=== PATIENT | female | born 1935 | race Caucasian/White ===

== ENCOUNTER 2018-01-27 07:05 | Day surgery (SDC) | payer MEDICARE ==
[~2018-01-27 07:05] MED LIST: Prevnar 13-Val Conj/PF 0.5 ML SYRINGE IM ONE
[2018-01-27 08:20] VITALS: BP 138/66; TEMP 98.2
--- NOTE | 2018-01-27 09:31 | RAD ---
CERVICAL SPINE 3 VIEWS: Date: 01/27/18 Lateral views obtained in the neutral, flexion, and extension positions. HISTORY: Cervical radiculopathy. FINDINGS: Prior anterior fusion procedure with anterior plate and screws transfixing C4, C5, and C6. Posterior alignment is maintained normal. Vertebral bodies maintain height. Degenerative spurring is seen anter iorly from the cervical vertebra. Facet hypertrophy is noted. Slight anterolisthesis of C7 on T1 does not appear to change with flexion or extension. IMPRESSION: Postoperative and degenerative changes of cervical spine noted. Slight anterolisthesis of C7-T1 does not appear to significantly change with flexion or extension. POS: [facility]
--- NOTE | 2018-01-27 10:22 | RAD ---
CERVICAL MYELOGRAM: HISTORY: Cervical radiculopathy. COMPARISON: None. EXPOSURE: 3.9 minutes, 4065.7 mGy*^m2. FINDINGS: Technically successful cervical myelogram. A total of 9 cc of Isovue-M 300 contrast was administered intrathecally. The patient tolerated the procedure well. No immediate or post procedure complicati ons. TECHNIQUE: Two views lumbar spine corn popper radiograph demonstrate 5 lumbar-type vertebral bodies. There is vacuum disk phenomenon at L4-L5 and L5-S1. There are bilateral pars defects at L5 with anterolisthesis of L 5 upon S1 (7 mm). Consent was obtained to perform a lumbar puncture for intrathecal contrast adminis tration. The patient's back was evaluated. Initially, the L3-L4 level was deemed appropriate. The skin was prepped and draped in sterile fashion. 1% Lidocaine, buffered with sodium bicarbonate, was used for local anesthesia. Due to extensive bony hypertrophy, access to the CSF space was not possib le. Therefore, the L4-L5 level was attempted, which was also unsuccessfully. Finally, the L5-S1 lev el was attempted, which was successful. There was flow of clear CSF into the hub of the needle. Via a short tubing catheter, a total of 9 cc of Isovue-300m contrast was administered intrathecally. Th e patient tolerated the procedure well. No immediate or post procedure complications. IMPRESSION: Technically successful lumbar puncture for intrathecal contrast administration. Please refer to post myelogram CT for further details. POS: [facility]
--- NOTE | 2018-01-27 12:14 | CT ---
POST MYELOGRAM CERVICAL SPINE CT: Date: 01/27/18 HISTORY: Cervical radiculopathy. COMPARISON: None. TECHNIQUE: Post myelogram cervical spine CT is performed in the axial plane. Reformatted images are submitted fo r interpretation. FINDINGS: There is an anterior fusion plate with transvertebral screw at C4, C5, and C6. No perihardware lucenc y. Prosthesis at C4-C5 and C5-C6 disc spaces. No prevertebral soft tissue swelling. There appear to b e degenerative changes and erosive changes involving the atlantoaxial articulation. Correlate for art hritis. Visualized soft tissue neck structures are unremarkable. Upper mediastinum and lung apices are also u nremarkable for an acute process. There is no craniocervical dissociation. Lateral masses of C1 and C2, as well as the facets, articula te appropriately. There is extensive degenerative change and hypertrophy of the facets. C2-C3: Central disc osteophyte complex, without significant central canal stenosis. Neural foramina are victor nt bilaterally. Minimal degenerative changes of the right uncovertebral joint. C3-C4: No significant disc osteophyte complex. No significant central canal stenosis. There is right greater than left facet hypertrophy. Mild right foraminal narrowing. Left neural foramen is patent. C4-C5: Broad based osteophyte ridge without significant central canal stenosis. Right neural foramen is victor nt. There is mild narrowing of the left neural foramen due to degenerative change of the uncovertebra l joint and left facet hypertrophy. C5-C6: There is a broad based osteophyte ridge without significant central canal stenosis. Mild left greater than right facet hypertrophy. Right neural foramen is patent. Mild left foraminal narrowing. C6-C7: No significant disc osteophyte complex. No significant central canal stenosis. Mild bilateral foramin al narrowing. C7-T1: There is a small right paracentral disc osteophyte complex. No significant central canal stenosis. Fo ramina are patent. IMPRESSION: 1. Degenerative changes of cervical spine as above. 2. Postsurgical changes and fusion changes as defined above. POS: [facility]
[2018-01-27] MEDS ORDERED: Iopamidol-M 300 61% 15 ML VIAL ONE (13:58)
== END 2018-01-27 10:30 | disposition home or self-care (01) ==
LOC: RAD 07:05 → EDSTATUS 08:00 → RAD 10:30
PROVIDERS: ATTEND Neurological Surgery
PROC: B02B1ZZ Computerized Tomography (CT Scan) of Spinal Cord using Low Osmolar Contrast (ICD-10-PCS; principal; 2018-01-27)
DX: M54.12 Radiculopathy, cervical region (principal); E07.9 Disorder of thyroid, unspecified; R03.0 Elevated blood-pressure reading, without diagnosis of hypertension; M19.90 Unspecified osteoarthritis, unspecified site; Z88.8 Allergy status to other drugs, medicaments and biological substances
CPT/HCPCS: 62302; 72040; 72126

== ENCOUNTER 2018-02-15 10:00 | Inpatient (IN) | payer MEDICARE ==
[2018-02-23] MEDS ORDERED: Sodium Chloride 0.9% 10 ML ONE (06:23)
[2018-02-23] MEDS ORDERED: Fentanyl 250 MCG/5 ML VIAL ONE (06:41)
[2018-02-23] MEDS ORDERED: CEFAZOLIN/Water 2 GM/20 ML SYRINGE ONE (06:57)
[2018-02-23] MEDS ORDERED: Promethazine HCl 25 MG/ML VIAL IM PRN (08:19)
[2018-02-23] MEDS ORDERED: Ondansetron HCl/PF 4 MG/2 ML Vial IVP PRN ×2 (08:19→10:15)
[2018-02-23] MEDS ORDERED: Promethazine HCl 25 MG/ML VIAL SLOW IVP PRN (08:19)
[2018-02-23] MEDS ORDERED: Fentanyl 100 MCG/2 ML VIAL ONE ×2 (08:49→09:11)
--- NOTE | 2018-02-23 08:53 | OP ---
DATE OF PROCEDURE: 02/23/2018 SURGEON: Blaine Smiley M.D. SET O TYPE OPERATOR: Marcus Cantu PROCEDURE: Removal of hardware C4-C6, exploration of spinal fusion C4-C6, anterior cervical discecto my C6-7, interbody arthrodesis, intravertebral biomechanical device, local morselized autograft, sonia neralized bone matrix, anterior titanium instrumentation C6-7. PROCEDURE IN DETAIL: The patient was brought to the operating room and intubated. She was positione d supine in modest extension on a gel-filled donut. Incision was made in the right precervical area and dissecting medial to the sternocleidomastoid muscle, we identified the anterior cervical spine an d the prior hardware. This was removed without difficulty. We explored the prior fusion and it seem ed to be solid. We placed distraction across C6-7, removed the intravertebral disc and completely re moved any osteophytes, particularly left C6-7. A complete decompression was achieved. The bony endp lates were then decorticated for the purpose of arthrodesis and appropriately sized intravertebral bi omechanical PEEK device was brought into the field, filled with demineralized bone matrix, local mors elized autograft, and tapped into place securely at C6-7. Next, an anterior plate was brought in the field and secured to C6 and C7 using two 14 mm screws at each level. The wound was extensively irri gated, immaculate hemostasis was secured, and the wound was closed in anatomic layers.
[2018-02-23 10:12] VITALS: BMI 26.0
[2018-02-23] MEDS ORDERED: Milk Of Magnesia 30 ML UDCUP PO PRN (10:15)
[2018-02-23] MEDS ORDERED: diphenhydrAMINE 50 MG/ML VIAL IVP PRN (10:15)
[2018-02-23] MEDS ORDERED: HYDROcodone/Acetaminophen 10/325 mg Tablet PO PRN ×2 (10:15)
[2018-02-23] MEDS ORDERED: Morphine 4 MG/ML Carpuject SLOW IVP PRN (10:15)
[2018-02-23] MEDS ORDERED: diphenhydrAMINE 25 MG CAP PO PRN (10:15)
[2018-02-23] MEDS ORDERED: tiZANidine HCl 4 MG TAB PO PRN (10:15)
[2018-02-23] MEDS ORDERED: traMADol HCl 50 MG TAB PO PRN ×2 (10:15)
[2018-02-23] MEDS ORDERED: Mag-Al 1200 mg/1200 mg/30 ML UDCUP PO PRN (10:15)
[2018-02-23] MEDS ORDERED: Morphine 4 MG/ML VIAL SLOW IVP PRN ×2 (10:38→10:40)
[2018-02-23] MEDS: Sodium Chloride 0.9% 1,000 ML IV SCH ×2 (12:24→16:10)
[2018-02-23] MEDS ORDERED: PROPOFOL 200 MG/20 ML VIAL ONE (14:36)
[2018-02-23] MEDS ORDERED: ePHEDrine/0.9% NaCl/PF SYRINGE 50 mg/10 ml ONE (14:36)
[2018-02-23] MEDS ORDERED: Naloxone HCl 0.4 mg/ml Vial ONE (14:36)
[2018-02-23] MEDS ORDERED: Glycopyrrolate 0.2 MG/ML 5 ML SYRINGE ONE (14:36)
[2018-02-23] MEDS ORDERED: Lidocaine 1% PF 5 ML VIAL ONE (14:36)
[2018-02-23] MEDS ORDERED: Lorazepam 0.5 MG TAB PO SCH (15:00)
[2018-02-23] MEDS: Gabapentin 300 MG CAP PO SCH ×2 (15:50→21:57)
[2018-02-23] MEDS ORDERED: Lorazepam 1 MG TAB PO SCH ×5 (16:00→21:00)
[2018-02-23] MEDS: CEFAZOLIN/Water 2 GM/20 ML SYRINGE SLOW IVP SCH ×2 (16:07→22:11)
[2018-02-23] MEDS: HYDROcodone/Acetaminophen 10/325 mg Tablet PO SCH ×2 (16:08→21:58)
[2018-02-23] MEDS ORDERED: Simethicone Chewable 80 MG TAB PO SCH ×2 (21:00)
[2018-02-23] MEDS ORDERED: ALPRAZolam 1 MG TAB PO SCH (21:00)
[2018-02-23] MEDS ORDERED: Famotidine 20 MG TAB PO SCH (21:00)
[2018-02-23] MEDS ORDERED: Estradiol 0.01% Vaginal Cream 42.5 gm Tube VAG SCH (21:00)
[2018-02-23] MEDS: cycloSPORINE 0.05% Ophthalmic Droperette EA EYE SCH (22:04)
[2018-02-23] MEDS: Fluticasone Propionate Nasal Spray 16 gm Bottle NASAL SCH (22:04)
[2018-02-24] MEDS: Sodium Chloride 0.9% 1,000 ML IV SCH (02:51)
[2018-02-24] MEDS ORDERED: Levothyroxine Sodium 75 MCG TAB PO SCH (06:00)
[2018-02-24] MEDS ORDERED: Famotidine 20 MG TAB PO SCH (08:00)
[2018-02-24] MEDS ORDERED: Lorazepam 1 MG TAB PO SCH ×2 (09:00)
[2018-02-24] MEDS ORDERED: Simethicone Chewable 80 MG TAB PO SCH (09:00)
[2018-02-24] MEDS ORDERED: Escitalopram Oxalate 10 mg Tablet PO SCH (09:00)
[2018-02-24] MEDS ORDERED: Amlodipine 5 MG TAB PO SCH (09:00)
[2018-02-24] MEDS ORDERED: ALPRAZolam 0.5 MG TAB PO SCH (09:00)
[2018-02-24] MEDS ORDERED: Multivitamin W/ Minerals 1 TAB PO SCH (09:00)
[2018-02-24] MEDS: Gabapentin 300 MG CAP PO SCH (09:28)
[2018-02-24] MEDS: HYDROcodone/Acetaminophen 10/325 mg Tablet PO SCH (09:30)
[2018-02-24] MEDS: Fluticasone Propionate Nasal Spray 16 gm Bottle NASAL SCH (09:37)
[2018-02-24] MEDS: cycloSPORINE 0.05% Ophthalmic Droperette EA EYE SCH (09:37)
[2018-02-24 11:53] VITALS: BP 146/55; TEMP 98.5
== END 2018-02-24 12:20 | disposition home or self-care (01) | DRG 473 ==
LOC: SURG A 02-23 05:52 → SURG B 02-23 09:49
PROVIDERS: ADMIT Neurological Surgery; ATTEND Neurological Surgery
PROC: 0RG10A0 Fusion of Cervical Vertebral Joint with Interbody Fusion Device, Anterior Approach, Anterior Column, Open Approach (ICD-10-PCS; principal; 2018-02-23)
PROC: 0RP104Z Removal of Internal Fixation Device from Cervical Vertebral Joint, Open Approach (ICD-10-PCS; 2018-02-23)
PROC: 0RB30ZZ Excision of Cervical Vertebral Disc, Open Approach (ICD-10-PCS; 2018-02-23)
DX: M48.02 Spinal stenosis, cervical region (principal); I10 Essential (primary) hypertension; G47.30 Sleep apnea, unspecified; E07.9 Disorder of thyroid, unspecified; Z88.8 Allergy status to other drugs, medicaments and biological substances; Z79.899 Other long term (current) drug therapy
CPT/HCPCS: 76001; A4216; C1713; C1776; J2001; J2270; J2310; J2704; J3010; J3490

== ENCOUNTER 2018-02-15 14:19 | Outpatient (CLI) | payer MEDICARE ==
[2018-02-15 15:30] LABS: Hemoglobin 13.7 g/dL (12.0-16.0); Mean Corpuscular HGB CONC 34.1 g/dL (32.0-36.0); Mean Corpuscular Hemoglobin 34.3 pg (27.0-31.0); Mean Platelet Volume 8.4 fL (7.4-10.4); Platelet Count 126 thou/uL (130-400); RBC Distribution Width 11.3 % (11.5-14.5); Red Blood Cell (RBC) Count 3.99 mill/uL (4.20-5.40); White Blood Cell (WBC) Count 8.1 thou/uL (4.8-10.8)
[2018-02-15 15:50] LABS: Anion Gap 12 mmol/L (10-20); BUN (Urea Nitrogen) 24 mg/dL (9.8-20.1); Calc. Creatinine Clearance 0 mL/min (70-130); Calcium 9.2 mg/dL (7.8-10.44); Carbon Dioxide 27 mmol/L (23-31); Chloride 99 mmol/L (98-107); Estimated GFR-MDRD 74; Glucose 103 mg/dL (83-110); Potassium 4.4 mmol/L (3.5-5.1); Sodium 134 mmol/L (136-145)
--- NOTE | 2018-02-15 16:47 | EKG ---
Test Reason : Blood Pressure : / mmHG Vent. Rate : 061 BPM Atrial Rate : 061 BPM P-R Int : 178 ms QRS Dur : 096 ms QT Int : 406 ms P-R-T Axes : -08 019 014 degrees QTc Int : 408 ms Normal sinus rhythm Normal ECG Confirmed by DR. Trace PEREZ (3) on 02/15/2018 4:47:21 PM Referred By: KENNY Confirmed By:DR. Trace PEREZ
== END 2018-02-15 14:20 | disposition home or self-care (01) ==
LOC: LABBT 14:19
PROVIDERS: ATTEND Neurological Surgery
DX: Z01.818 Encounter for other preprocedural examination (principal); M54.12 Radiculopathy, cervical region
CPT/HCPCS: 80048; 85027; 93005; 93010

== ENCOUNTER 2018-02-26 20:40 | Inpatient (IN) | payer MEDICARE ==
[~2018-02-26 20:40] MED LIST changes: +ISOVUE-370 76%-LOCM 1 ML ONE; -Prevnar 13-Val Conj/PF 0.5 ML SYRINGE IM ONE
--- NOTE | 2018-02-26 21:33 | RAD ---
AP VIEW OF THE CHEST: 02/26/18 INDICATION: Postop day 2 from spinal surgery with cough and fever. FINDINGS: There is air space opacity in the right lower lobe suspicious for pneumonia. Left lung is clear. Ther e is mild cardiomegaly. There is partial visualization of the ACDF plate. No acute osseous abnormalit y is evident. IMPRESSION: Air space opacity in the right lower lobe suspicious for pneumonia. Findings called to Dr. Bowden, 9:30 p.m. POS: [facility]
[2018-02-26] MEDS ORDERED: Acetaminophen 500 MG TAB ONE (21:35)
[2018-02-26 21:39] LABS: Hemoglobin 13.2 g/dL (12.0-16.0); Mean Corpuscular HGB CONC 34.2 g/dL (32.0-36.0); Mean Corpuscular Hemoglobin 34.3 pg (27.0-31.0); RBC Distribution Width 11.1 % (11.5-14.5); Red Blood Cell (RBC) Count 3.86 mill/uL (4.20-5.40); White Blood Cell (WBC) Count 13.7 thou/uL (4.8-10.8)
[2018-02-26] MEDS ORDERED: Piperacillin/Tazobactam 4.5 GM VIAL ONE (21:44)
[2018-02-26] MEDS ORDERED: Sodium Chloride 0.9% 100 ML ONE (21:45)
[2018-02-26 21:54] LABS: #Basophils 0.1 thou/uL (0.0-0.2); #Eosinphils 0.1 thou/uL (0.0-0.7); #Lymphocytes 1.6 thou/uL (1.20-3.40); #Monocytes 0.9 thou/uL (0.11-0.59); #Neutrophils 11.1 thou/uL (1.40-6.50); %Basophils 0.4 % (0.0-1.0); %Eosinophils 0.4 % (0.0-10.0); %Lymphocytes 11.6 % (21.0-51.0); %Monocytes 6.5 % (0.0-10.0); %Neutrophils 81.1 % (42.0-75.0); Mean Platelet Volume 8.7 fL (7.4-10.4); PLT Morphology Comment Appears Decreased; Platelet Count 118 thou/uL (130-400)
[2018-02-26 21:55] LABS: ALT (SGPT) 20 U/L (8-55); AST (SGOT) 22 U/L (5-34); Albumin 4.2 g/dL (3.4-4.8); Alkaline Phosphatase 52 U/L (40-150); Anion Gap 12 mmol/L (10-20); BUN (Urea Nitrogen) 17 mg/dL (9.8-20.1); Bilirubin, Total 0.7 mg/dL (0.2-1.2); Calc. Creatinine Clearance 0 mL/min (70-130); Calcium 9.3 mg/dL (7.8-10.44); Carbon Dioxide 28 mmol/L (23-31); Chloride 94 mmol/L (98-107); Estimated GFR-MDRD 71; Globulin 3.2 g/dL (2.4-3.5); Glucose 117 mg/dL (83-110); Potassium 4.2 mmol/L (3.5-5.1); Protein, Total 7.4 g/dL (6.0-8.3); Sodium 130 mmol/L (136-145)
[2018-02-26] MEDS ORDERED: Vancomycin HCl 1 GM in Premix Bag 1 BAG IVPB SCH (22:00)
[2018-02-26] MEDS ORDERED: Lorazepam 1 MG TAB ONE (22:03)
[2018-02-26] MEDS ORDERED: Gabapentin 300 MG CAP PO SCH (22:15)
[2018-02-26 22:41] LABS: Bilirubin Negative (Negative); Blood, Urine Trace (Negative); Clarity CLEAR (Clear); Glucose, Urine (Dipstick) Negative (Negative); Leukocyte Negative (Negative); Nitrite Negative (Negative); Protein, Urine (Dipstick) Negative (Neg-Trace); Specific Gravity, Urine 1.015 (1.002-1.036); Urobilinogen 0.2 mg/dL (0.2-1.0); pH, Urine 7.5 (5.0-9.0)
[2018-02-26 22:43] LABS: Bacteria/HPF None Seen HPF (None Seen); Hyaline Casts/LPF 0-3 HYALINE CAST LPF (0-3 Hyaline); WBC/HPF None Seen HPF (0-3)
--- NOTE | 2018-02-26 23:37 | CT ---
CT OF THE SOFT TISSUES OF THE NECK UTILIZING IV CONTRAST: 02/26/18 INDICATION: Concern for postoperative wound infection. The patient is postop day 2 from a cervical spinal surgery . Fever up to 103 degrees. Patient had some difficulty swallowing. Patient is also having bruising in the mid chest. COMPARISON: CT myelogram dated 01/27/18. FINDINGS: There is a large retropharyngeal/prevertebral fluid and gas collection seen extending from approximat alex the C4 vertebral level through the T2 vertebral level. This collection also extends slightly rig ht of midline of the trachea and esophagus. Fluid and gas collection measures 4.8 x 2.6 x 7.7 cm. The re is more retropharyngeal edema that extends posterior to the oropharynx. The edema also extends inf eriorly into the upper mediastinum. There is prominent wall thickening involving the right upper esop hagus. Fluid and gas collection does appear to communicate through the right platysma at the level of the thyroid cartilage on image 56 of series 2 on the right. This may be related to the patient's inc ision site with the fluid and gas collection tracking along the surgical dissection site. There is contrast opacification seen within the internal carotid arteries. There is contrast opacific ation within the jugular vein. There has been interval revision of the ACDF of the cervical spine seen on the CT myelogram. Previou sly, the ACDF spanned C4 through C6. The plate and screw construct at C4 through C6 has been removed. Intervertebral cages at C4-5 and C5-6 remain. There is a new intervertebral disc cage at C6-7 with a new ACDF plate. There is severe multilevel spondylosis of the cervical spine. IMPRESSION: 1. Large fluid and gas collection seen within the retropharyngeal space/prevertebral space overl andrew the operative site of the ACDF revision communicating through the suspected right neck incision site through the right platysma at the level of the thyroid cartilage. In light of the patient's hist ory of fever and difficulty swallowing, findings are suspicious for a complicated postop fluid collec tion such as infected hematoma. Some of the gas within the collection may be related to the patient's recent postop state however. There is extensive edema seen within the retropharyngeal region and pre vertebral soft tissues extending from the level of the oropharynx through the level of the upper medi astinum. The fluid and gas collection extends from approximately C4 through T2 in its greatest cranio caudad component. There is wall thickening involving the proximal right lateral aspect of the esophag us may be related to swelling from the patient's surgery.Recommend neurosurgical consultation. 2. ACDF revision as detailed above. 3. Severe multilevel spondylosis cervical spine. POS: [facility]
[2018-02-27 02:19] VITALS: BMI 26.6
[2018-02-27] MEDS ORDERED: Senokot 8.6 MG TAB PO PRN (02:28)
[2018-02-27] MEDS ORDERED: Ondansetron HCl/PF 4 MG/2 ML Vial IVP PRN (02:28)
[2018-02-27] MEDS ORDERED: Loperamide HCl 2 MG CAP PO PRN (02:28)
[2018-02-27] MEDS ORDERED: Milk Of Magnesia 30 ML UDCUP PO PRN (02:28)
[2018-02-27] MEDS ORDERED: Mag-Al 1200 mg/1200 mg/30 ML UDCUP PO PRN (02:28)
[2018-02-27] MEDS: Sodium Chloride 0.9% 1,000 ML IV SCH ×2 (03:27→13:24)
--- NOTE | 2018-02-27 03:31 | HP ---
PRIMARY CARE PHYSICIAN: Dr. Ernie Mark. REASON FOR ADMISSION: Right lower lobe pneumonia. HISTORY OF PRESENT ILLNESS: An 82-year-old female who had ACDF revision on 06/2018. Patient was discharged home on 02/24/2018. Patient came back to emergency room for evaluation of fever. Patient was having 102 fever at home. Patient was also having cough. She does have some difficulty swallowing. She does report some sore throat. Patient denies any constipation, diarrhea. She does report increased urinary frequency and dysuria. She does have bruising up to mid chest level. Patient had chest x-ray, which showed right lower lobe infiltration and CT soft tissue neck showed fluid collection in the retropharyngeal space and it was worrisome for infected hematoma. In the emergency room, patient was febrile with a temperature of 102.8. She was given vancomycin, Levaquin, and Zosyn. Patient was also given IV fluid and subsequently patient is being admitted to telemetry floor. Neurosurgery was notified from emergency room. REVIEW OF SYSTEMS: Please see my HPI for pertinent positive and negative. All other review of systems reviewed and negative except as mentioned in the HPI: Constitutional: Weight loss or gain, ability to conduct usual activities. Skin : Rash, itching. Eyes: Double vision, pain. ENT/Mouth: Nose bleeding, neck stiffness, pain, tenderness. Cardiovascular: Palpitations, dyspnea on exertion , orthopnea. Respiratory: Shortness of breath, wheezing, cough, hemoptysis, fever, or night sweats. Gastrointestinal: Poor appetite, abdominal pain, heartburn, nausea, vomiting, constipation, or diarrhea. Genitourinary: Urgency , frequency, dysuria, nocturia. Musculoskeletal: Pain, swelling. Neurologic/ Psychiatric: Anxiety, depression. Allergy/Immunologic: Skin rash, bleeding tendency. PAST MEDICAL HISTORY: Hypothyroidism, gastroesophageal reflux disease, hypertension, osteoarthritis, cervical spine disease required ACDF repair. PAST SURGICAL HISTORY: Cholecystectomy, hysterectomy, right knee replacement, status post cervical spine surgery on 02/23/2018. PAST PSYCHIATRIC HISTORY: Anxiety and depression. SOCIAL HISTORY: Patient lives at home. No history of tobacco, alcohol, or illicit drug abuse. ALLERGIES: CYMBALTA. CURRENT HOME MEDICATIONS: Amlodipine 5 mg p.o. daily, Celexa 10 mg p.o. daily, estradiol vaginal cream daily, gabapentin 600 mg p.o. t.i.d., Synthroid 75 mcg p.o. daily, lorazepam 0.5 mg p.o. t.i.d., Toprol-XL 50 mg p.o. daily, multivitamin 1 tablet p.o. daily, Zantac 75 mg p.o. b.i.d., Zanaflex 4 mg q.6 hourly p.r.n. FAMILY HISTORY: No strong family history of premature coronary artery disease, stroke, or cancer. PHYSICAL EXAMINATION: VITAL SIGNS: On arrival blood pressure 152/72, pulse 96, respiratory rate 20, temperature 102.8, saturation 93% on room air, weight 59 kilograms. GENERAL: Patient is currently alert, awake, febrile. HEAD: Normocephalic, atraumatic. EYES: Pupils round, reactive to light. Extraocular muscle intact. ENT: Oropharynx within normal limits. Moist mucous membrane, no oral lesion, no pharyngeal erythema, no exudate. NECK: Supple. Anterior surgical scar is covered with Steri-Strips without any infection. Patient does have bruise extending to upper chest. LUNGS: Right lower lobe rales noted. No wheezing, no rhonchi. CARDIAC: S1, S2 regular. No murmur, no gallop, no rub. ABDOMEN: Soft, bowel sounds present, nontender, nondistended. No organomegaly , no mass, no suprapubic tenderness. BACK: Unremarkable, no CVA tenderness. EXTREMITIES: Upper extremity, passive movement of all joints are normal. Lower extremities: No edema. Good peripheral pulsation, no calf tenderness. SKIN: No skin rash other than bruits over the anterior chest and lower neck. PSYCHIATRIC: Normal affect. HEMATOLOGICAL: No lymphadenopathy. SIGNIFICANT LABORATORY DATA: EKG showing normal sinus rhythm, LVH. Chest x- ray right lower lobe infiltration. CT soft tissue neck consistent with large fluid and gas collection within the retropharyngeal space/prevertebral space overlying operative side of ACDF revision suspicious for infected hematoma, multilevel spondylosis of cervical spine. CBC: WBC is 13.7, hemoglobin 13.2, MCV 100, platelet 118 with left shift. BMP : Sodium 130, potassium 4.2, chloride 94, carbon dioxide 28, anion gap 12, BUN 17, creatinine 0.78, glucose 117, calcium 9.3. Lactic acid 1.8. LFT: AST 22, ALT 20, alkaline phosphatase 52, albumin 4.2. Urinalysis unremarkable. ASSESSMENT AND PLAN: 1. Sepsis. 2. Right lower lobe healthcare associated pneumonia/aspiration pneumonia. 3. Fluid and gas collection within retropharyngeal space, last prevertebral space after recent anterior cervical discectomy and fusion surgery, rule out infection. 4. Macrocytosis. 5. Mild thrombocytopenia. 6. Hyponatremia. 7. Hypertension. 8. Hypothyroidism. 9. Anxiety and depression. 10. Gastroesophageal reflux disease. 11. Cervical spondylosis. PLAN: Admission to telemetry floor. We will continue vancomycin, Zosyn, and Levaquin. Follow up on culture. Neurosurgery will be consulted for their opinion regarding fluid collection in retropharyngeal space, DuoNeb therapy q.6 hourly p.r.n. Her selected home medication will be continued while in hospital. We will monitor her hemodynamics. We will follow up on culture result. Code status: Patient is FULL CODE. Patient does not have any surrogate decision maker. Gastrointestinal prophylaxis, Pepcid 20 mg p.o. b.i.d. Disposition plan based on clinical course. We are expecting patient's stay in hospital more than 2 midnights. Plan of care discussed with the patient in detail. Patient will be given gentle IV fluid and we will also evaluate for swallowing while in hospital to rule out silent aspiration. Speech Therapy will be consulted. BRYAN
[2018-02-27] MEDS ORDERED: Piperacillin/Tazobactam 4.5 GM in Sodium Chloride 0.9% 100 ML IVPB SCH (04:00)
[2018-02-27 06:05] LABS: Anion Gap 10 mmol/L (10-20); BUN (Urea Nitrogen) 12 mg/dL (9.8-20.1); Calc. Creatinine Clearance 63 mL/min (70-130); Calcium 8.1 mg/dL (7.8-10.44); Carbon Dioxide 26 mmol/L (23-31); Chloride 103 mmol/L (98-107); Estimated GFR-MDRD 86; Glucose 124 mg/dL (83-110); Potassium 3.7 mmol/L (3.5-5.1); Sodium 135 mmol/L (136-145)
[2018-02-27 06:07] LABS: #Lymphocytes 1.2 thou/uL (1.20-3.40); #Monocytes 1.4 thou/uL (0.11-0.59); #Neutrophils 12.6 thou/uL (1.40-6.50); %Basophils 0.2 % (0.0-1.0); %Eosinophils 0.3 % (0.0-10.0); %Lymphocytes 8.1 % (21.0-51.0); %Monocytes 8.9 % (0.0-10.0); %Neutrophils 82.6 % (42.0-75.0); Hemoglobin 11.5 g/dL (12.0-16.0); Mean Corpuscular HGB CONC 34.1 g/dL (32.0-36.0); Mean Corpuscular Hemoglobin 34.4 pg (27.0-31.0); Platelet Count 108 thou/uL (130-400); RBC Distribution Width 11.3 % (11.5-14.5); Red Blood Cell (RBC) Count 3.33 mill/uL (4.20-5.40); White Blood Cell (WBC) Count 15.3 thou/uL (4.8-10.8)
[2018-02-27] MEDS: Piperacillin/Tazobactam 3.375 GM in Sodium Chloride 0.9% 100 ML IVPB SCH ×3 (06:07→17:50)
[2018-02-27] MEDS ORDERED: Famotidine/PF 20 mg/2ml Vial SLOW IVP SCH (09:00)
[2018-02-27] MEDS: Saccharomyces boulardii 250 MG CAP PO SCH (09:35)
[2018-02-27] MEDS: Acetaminophen 325 MG TAB PO PRN (10:07)
[2018-02-27] MEDS ORDERED: tiZANidine HCl 4 MG TAB PO PRN (11:25)
[2018-02-27] MEDS ORDERED: Estradiol 0.01% Vaginal Cream 42.5 gm Tube VAG SCH (11:30)
--- NOTE | 2018-02-27 13:24 | CON ---
DATE OF CONSULTATION: 02/27/2018 ATTENDING PHYSICIAN: Dr. Blaine Smiley. HISTORY OF PRESENT ILLNESS: The patient is an 82-year-old female status post removal of quiñones rdware at C6-C7 ACDF postop day #5, who presented to the emergency room last night for fever and coug h. She reports that 2 days ago, she developed cough which had become progressively worse and was ass ociated with fever and chills yesterday. She called the answering service and was advised by myself to present to the emergency room for further evaluation. A chest x-ray done on arrival was notable f or right lower lobe infiltrate consistent with pneumonia. CT soft tissue neck was also done, which r evealed postoperative changes as well as a fluid collection along the surgical site. I have seen the patient at the bedside. She is awake, alert, in no acute distress. She has a normal voice. No focal neurologic deficits are appreciated. She reports that although it is slightly unco mfortable to swallow, she was tolerating her diet well at home. PAST MEDICAL HISTORY: Hypothyroidism, GERD, hypertension, osteoarthritis, cervical degenerative dise ase. PAST SURGICAL HISTORY: Cholecystectomy, hysterectomy, right knee replacement, status post removal of hardware ACDF C6-C7 on 02/23/2018. SOCIAL HISTORY: The patient lives at home. She does not smoke, drink or use any drugs. ALLERGIES: She is allergic to CYMBALTA. FAMILY HISTORY: Noncontributory. PHYSICAL EXAMINATION: VITAL SIGNS: Temperature 99.0, heart rate 77, respiratory rate is 18, oxygen 98% on 2 liters nasal c annula. CONSTITUTIONAL: She is awake, alert, no acute distress, sitting in the bed comfortable. HEENT: Hea d is normocephalic, atraumatic. Eyes: PERRLA. Extraocular movements intact. ENT: The patient has n ormal voice. Her mucosa are pink and intact. NECK: Nontender to palpation. Steri-Strips are in place over the right anterior neck incision. The incision is soft. There is no wound dehiscence or drainage. There is a small amount of ecchymosis to the right upper chest wall. LUNGS: The patient has symmetric chest expansion. She does not have any evidence of dyspnea at this time. CARDIAC: Regular rate and rhythm. MUSCULOSKELETAL: Good muscle tone in bilateral upper and lower extremities. No focal motor weakness or reflex asymmetry. NEUROLOGIC: Alert and oriented x4. No focal neurologic deficits are appreciated. ASSESSMENT AND PLAN: This is an 82-year-old female status post removal of hardware at C6-C7 ACDF pos top day #5, who returned to the ER last night for fever, chills, and cough. She also reported she quiñones s had some mild discomfort with swallowing, but this appears to be improving in time and she is lan ating a regular diet. Her chest x-ray was consistent with pneumonia, and she has been admitted to [facility] medicine service for further management of this condition. She also had a CT scan of the soft tiss ue neck of the cervical spine, which showed postoperative changes and fluid collection concerning for hematoma versus infectious process. I have reviewed the scan and I believe this is less likely to r epresent infectious process considering her source. I believe that this fluid collection is likely postoperative in nature and will improve with time. I have discussed this with the patient as well a nd Dr. Smiley who is in agreement. We will continue to be available for any additional questions o r concerns. Patient can follow up with us at her anticipated postoperative appointment in [facility] 2 weeks.
[2018-02-27] MEDS ORDERED: Ibuprofen 200 MG TAB PO SCH (15:00)
[2018-02-27] MEDS: Gabapentin 300 MG CAP PO SCH ×2 (15:24→20:58)
[2018-02-27] MEDS: HYDROcodone/Acetaminophen 10/325 mg Tablet PO SCH ×2 (15:25→20:59)
[2018-02-27] MEDS: Lorazepam 0.5 MG TAB PO SCH (15:26)
[2018-02-27] MEDS: Fluticasone Propionate Nasal Spray 16 gm Bottle NASAL SCH (20:57)
[2018-02-27] MEDS: Lorazepam 1 MG TAB PO SCH (20:59)
[2018-02-27] MEDS ORDERED: ALOE VERA TOP SCH (21:00)
[2018-02-27] MEDS ORDERED: EMU OIL TOP SCH (21:00)
[2018-02-27] MEDS ORDERED: MSM TOP SCH (21:00)
[2018-02-27] MEDS ORDERED: [UNRECOGNIZED DRUG - OTHER] TOP SCH (21:00)
[2018-02-27] MEDS: Vancomycin HCl 500 MG in Sodium Chloride 0.9% 100 ML IVPB SCH (21:02)
[2018-02-27] MEDS: cycloSPORINE 0.05% Ophthalmic Droperette EA EYE SCH (23:07)
[2018-02-28] MEDS: Piperacillin/Tazobactam 3.375 GM in Sodium Chloride 0.9% 100 ML IVPB SCH ×4 (02:22→17:09)
[2018-02-28] MEDS: Sodium Chloride 0.9% 1,000 ML IV SCH ×3 (02:24→21:51)
[2018-02-28] MEDS: Levothyroxine Sodium 75 MCG TAB PO SCH (05:31)
[2018-02-28] MEDS: Escitalopram Oxalate 10 mg Tablet PO SCH (08:05)
[2018-02-28] MEDS: Amlodipine 5 MG TAB PO SCH (08:05)
[2018-02-28] MEDS: Famotidine 20 MG TAB PO SCH (08:05)
[2018-02-28] MEDS: HYDROcodone/Acetaminophen 10/325 mg Tablet PO SCH ×3 (08:06→20:53)
[2018-02-28] MEDS: Gabapentin 300 MG CAP PO SCH ×3 (08:06→20:53)
[2018-02-28] MEDS: Saccharomyces boulardii 250 MG CAP PO SCH (08:07)
[2018-02-28] MEDS: Lorazepam 0.5 MG TAB PO SCH ×2 (08:07→14:32)
[2018-02-28] MEDS: Multivitamin W/ Minerals 1 TAB PO SCH (08:07)
[2018-02-28] MEDS: cycloSPORINE 0.05% Ophthalmic Droperette EA EYE SCH ×2 (08:10→21:05)
[2018-02-28] MEDS ORDERED: Sodium Chloride 0.9% 10 ML ONE (11:25)
[2018-02-28] MEDS: TURMERIC ROOT EXTRACT PO SCH ×2 (12:29→12:34)
--- NOTE | 2018-02-28 12:41 | PDOC.PN ---
- Subjective Encounter Start Date: 02/28/18 Encounter Start Time: 07:40 -: old records requested/rev Patient seen and examined for pneumonia. No new complaints. No overnight events - Objective Resuscitation Status: Resuscitation Status FULL:Full Resuscitation MAR Reviewed: Yes Vital Signs & Weight: Vital Signs (12 hours) Temp Pulse Resp BP BP Pulse Ox 02/28/18 12:16 99 F 77 18 159/71 H 95 02/28/18 07:50 98 F 83 20 180/85 H 96 02/28/18 04:46 98.1 F 89 18 158/69 H 93 L I&O: 02/27/18 02/28/18 03/01/18 06:59 06:59 06:59 Intake Total 400 2600 Output Total 1900 Balance -1500 2600 Result Diagrams: 02/27/18 05:08 02/27/18 05:08 EKG Reviewed by me: Yes (nsr) Phys Exam - Physical Examination Constitutional: NAD HEENT: PERRLA, moist MMs, sclera anicteric Neck: no JVD, supple surgical site clean Respiratory: no wheezing, no rales, no rhonchi reduced air entry has bruise upper chest wall Cardiovascular: RRR, no significant murmur, no rub Gastrointestinal: soft, non-tender, no distention, positive bowel sounds Musculoskeletal: no edema, pulses present Neurological: non-focal, normal sensation, moves all 4 limbs Lymphatic: no nodes Psychiatric: normal affect, A&O x 3 Skin: normal turgor Dx/Plan (1) Sepsis Code(s): A41.9 - SEPSIS, UNSPECIFIED ORGANISM Status: Acute (2) Right lower lobe pneumonia Code(s): J18.1 - LOBAR PNEUMONIA, UNSPECIFIED ORGANISM Status: Acute (3) Fluid collection at surgical site Code(s): T88.8XXA - OTH COMPLICATIONS OF SURGICAL AND MEDICAL CARE, NEC, INIT Status: Acute (4) H/O cervical discectomy Code(s): Z98.890 - OTHER SPECIFIED POSTPROCEDURAL STATES Status: Acute (5) Hyponatremia Code(s): E87.1 - HYPO-OSMOLALITY AND HYPONATREMIA Status: Acute (6) Thrombocytopenia Code(s): D69.6 - THROMBOCYTOPENIA, UNSPECIFIED Status: Acute (7) Anxiety and depression Code(s): F41.9 - ANXIETY DISORDER, UNSPECIFIED; F32.9 - MAJOR DEPRESSIVE DISORDER, SINGLE EPISODE, UNSPECIFIED Status: Chronic (8) Hypertension Code(s): I10 - ESSENTIAL (PRIMARY) HYPERTENSION Status: Chronic (9) Hypothyroidism Code(s): E03.9 - HYPOTHYROIDISM, UNSPECIFIED Status: Chronic (10) Macrocytic anemia Code(s): D53.9 - NUTRITIONAL ANEMIA, UNSPECIFIED Status: Chronic - Plan cont current plan of care, continue antibiotics * pt is clinically stable, tolerating diet * wbc count is high, will continue empiric antibiotics as per below * no need of tele, so will transfer to medical * medication reviewed as below * symptomatic treatment * neurosurgery recommendation noted * follow culture * repeat labs tomorrow. Review of Systems - Review of Systems Eyes: negative: Pain, Vision Change, Conjunctivae Inflammation, Eyelid Inflammation, Redness, Other ENT: negative: Ear Pain, Ear Discharge, Nose Pain, Nose Discharge, Nose Congestion, Mouth Pain, Mouth Swelling, Throat Pain, Throat Swelling, Other Respiratory: Cough, Shortness of Breath. negative: Dry, Hemoptysis, SOB with Excertion, Pleuritic Pain, Sputum, Wheezing Cardiovascular: negative: chest pain, palpitations, orthopnea, paroxysmal nocturnal dyspnea, edema, light headedness, other Gastrointestinal: negative: Nausea, Vomiting, Abdominal Pain, Diarrhea, Constipation, Melena, Hematochezia, Other Genitourinary: negative: Dysuria, Frequency, Incontinence, Hematuria, Retention , Other Musculoskeletal: negative: Neck Pain, Shoulder Pain, Arm Pain, Back Pain, Hand Pain, Leg Pain, Foot Pain, Other Skin: negative: Rash, Lesions, Rogers, Bruising, Other - Medications/Allergies Allergies/Adverse Reactions: Allergies Allergy/AdvReac Type Severity Reaction Status Date / Time duloxetine [From Cymbalta] AdvReac Verified 02/27/18 02:56 Medications: Current Medications Acetaminophen (Tylenol) 650 mg PO Q4H PRN PRN Reason: Headache/Fever or Pain Last Admin: 02/27/18 10:07 Dose: 650 mg Hydrocodone Bitart/Acetaminophen ([facility] 10/325) 1 tab PO TID STEVE Last Admin: 02/28/18 08:06 Dose: 1 tab Al Hydroxide/Mg Hydroxide (Maalox) 30 ml PO Q6H PRN PRN Reason: Heartburn or Indigestion Albuterol/Ipratropium (Duoneb) 3 ml NEB Q6H PRN PRN Reason: SOB &/or Wheezing Amlodipine Besylate (Norvasc) 5 mg PO DAILY [facility] [place] Last Admin: 02/28/18 08:05 Dose: 5 mg Cyclosporine (Restasis) 0 ml EA EYE BID [facility] [place] Last Admin: 02/28/18 08:10 Dose: 0.4 ml Escitalopram Oxalate (Lexapro) 10 mg PO DAILY [facility] [place] Last Admin: 02/28/18 08:05 Dose: 10 mg Estradiol (Estrace 0.01% Vaginal Cream) 0.5 gm VAG .TWICE A WEEK [facility] [place] Last Admin: 02/27/18 20:58 Dose: 0.5 gm Famotidine (Pepcid) 20 mg PO DAILY [facility] [place] Last Admin: 02/28/18 08:05 Dose: 20 mg Fluticasone Propionate (Flonase Nasal [place]) 0 gm NASAL HS [facility] [place] Last Admin: 02/27/18 20:57 Dose: 2 spr Gabapentin (Neurontin) 600 mg PO TID [facility] [place] Last Admin: 02/28/18 08:06 Dose: 600 mg Levofloxacin 500 mg/ Device 100 mls @ 100 mls/hr IVPB 2200 [facility] [place] Last Admin: 02/27/18 23:08 Dose: 100 mls Sodium Chloride (Normal Saline 0.9%) 1,000 mls @ 100 mls/hr IV .Q10H [facility] [place] Last Admin: 02/28/18 02:24 Dose: 1,000 mls Piperacillin Sod/Tazobactam (Sod 3.375 gm/ Sodium Chloride) 100 mls @ 200 mls/ hr IVPB Q6HR [facility] [place] Last Admin: 02/28/18 12:33 Dose: 100 mls Vancomycin HCl 500 mg/ Sodium (Chloride) 100 mls @ 100 mls/hr IVPB 2100 [facility] [place] Last Admin: 02/27/18 21:02 Dose: 100 mls Iron/Minerals/Multivitamins (Theragran M) 1 tab PO DAILY [facility] [place] Last Admin: 02/28/18 08:07 Dose: 1 tab Levothyroxine Sodium (Synthroid) 75 mcg PO 0600 [facility] [place] Last Admin: 02/28/18 05:31 Dose: 75 mcg Loperamide HCl (Imodium) 2 mg PO PRN PRN PRN Reason: Diarrhea/Loose Stools Lorazepam (Ativan) 0.5 mg PO 0900,1500 [facility] [place] Last Admin: 02/28/18 08:07 Dose: 0.5 mg Lorazepam (Ativan) 2 mg PO HS [facility] [place] Last Admin: 02/27/18 20:59 Dose: 2 mg Magnesium Hydroxide (Milk Of Magnesium) 30 ml PO DAILYPRN PRN PRN Reason: Constipation Metoprolol Succinate (Toprol Xl) 50 mg PO DAILY [facility] [place] Last Admin: 02/28/18 08:07 Dose: 50 mg Miscellaneous Medication (Pharmacy To Dose) 1 each IVPB PRN PRN PRN Reason: Pharmacy to dose Ondansetron HCl (Zofran) 4 mg IVP Q6H PRN PRN Reason: Nausea/Vomiting Saccharomyces Boulardii (Florastor) 250 mg PO DAILY [facility] [place] Last Admin: 02/28/18 08:07 Dose: 250 mg Senna (Senokot) 2 tab PO HSPRN PRN PRN Reason: Constipation Tizanidine HCl (Zanaflex) 4 mg PO Q6H PRN PRN Reason: Muscle Spasm
[2018-02-28 20:50] LABS: Vancomycin, Trough 2.9 ug/mL
[2018-02-28] MEDS: Fluticasone Propionate Nasal Spray 16 gm Bottle NASAL SCH (20:52)
[2018-02-28] MEDS: Lorazepam 1 MG TAB PO SCH (20:54)
[2018-02-28] MEDS ORDERED: Vancomycin HCl 1 GM in Premix Bag 1 BAG IVPB SCH (22:00)
[2018-02-28] MEDS: Vancomycin HCl 500 MG in Sodium Chloride 0.9% 100 ML IVPB SCH (22:28)
[2018-03-01] MEDS: Piperacillin/Tazobactam 3.375 GM in Sodium Chloride 0.9% 100 ML IVPB SCH ×3 (00:10→11:46)
[2018-03-01] MEDS: Acetaminophen 325 MG TAB PO PRN (03:22)
[2018-03-01] MEDS: Levothyroxine Sodium 75 MCG TAB PO SCH (06:15)
[2018-03-01] MEDS: Sodium Chloride 0.9% 1,000 ML IV SCH (06:18)
[2018-03-01 07:52] LABS: #Eosinphils 0.2 thou/uL (0.0-0.7); #Lymphocytes 1.5 thou/uL (1.20-3.40); #Monocytes 0.6 thou/uL (0.11-0.59); %Basophils 0.3 % (0.0-1.0); %Eosinophils 2.4 % (0.0-10.0); %Lymphocytes 20.6 % (21.0-51.0); %Monocytes 7.9 % (0.0-10.0); %Neutrophils 68.8 % (42.0-75.0); Mean Corpuscular HGB CONC 33.6 g/dL (32.0-36.0); Mean Platelet Volume 7.7 fL (7.4-10.4); Platelet Count 146 thou/uL (130-400); RBC Distribution Width 11.2 % (11.5-14.5); Red Blood Cell (RBC) Count 3.81 mill/uL (4.20-5.40); White Blood Cell (WBC) Count 7.3 thou/uL (4.8-10.8)
[2018-03-01 07:54] VITALS: BP 174/83; TEMP 98.5
[2018-03-01 08:13] LABS: Anion Gap 11 mmol/L (10-20); BUN (Urea Nitrogen) 7 mg/dL (9.8-20.1); Calc. Creatinine Clearance 59 mL/min (70-130); Calcium 9.3 mg/dL (7.8-10.44); Carbon Dioxide 28 mmol/L (23-31); Chloride 102 mmol/L (98-107); Estimated GFR-MDRD 79; Glucose 106 mg/dL (83-110); Potassium 3.5 mmol/L (3.5-5.1); Sodium 137 mmol/L (136-145)
[2018-03-01] MEDS: Saccharomyces boulardii 250 MG CAP PO SCH (08:46)
[2018-03-01] MEDS: Famotidine 20 MG TAB PO SCH (08:46)
[2018-03-01] MEDS: Lorazepam 0.5 MG TAB PO SCH (08:46)
[2018-03-01] MEDS: Amlodipine 5 MG TAB PO SCH (08:46)
[2018-03-01] MEDS: Escitalopram Oxalate 10 mg Tablet PO SCH (08:46)
[2018-03-01] MEDS: cycloSPORINE 0.05% Ophthalmic Droperette EA EYE SCH (08:47)
[2018-03-01] MEDS: Multivitamin W/ Minerals 1 TAB PO SCH (08:47)
[2018-03-01] MEDS: HYDROcodone/Acetaminophen 10/325 mg Tablet PO SCH (08:47)
[2018-03-01] MEDS: Gabapentin 300 MG CAP PO SCH (08:47)
[2018-03-01] MEDS ORDERED: Vancomycin HCl 750 MG in Sodium Chloride 0.9% 250 ML 250 ML IVPB SCH (09:00)
--- NOTE | 2018-03-01 12:14 | DIS ---
PRIMARY CARE PHYSICIAN: Dr. Ernie Mark DATE OF ADMISSION: 02/26/2018 DATE OF DISCHARGE: 03/01/2018 DISCHARGE DISPOSITION: Home. PRIMARY DISCHARGE DIAGNOSES: 1. Right lower lobe community-acquired pneumonia. 2. Hyponatremia. 3. Thrombocytopenia. 4. Sepsis. 5. Fluid collection at surgical site. SECONDARY DISCHARGE DIAGNOSES: History of cervical discectomy, hypertension, hypothyroidism, macrocy tic anemia, anxiety and depression. PRIMARY PROCEDURE/OPERATION: None. RADIOLOGICAL INVESTIGATION: Soft tissue neck CT scan showed a fluid collection at surgical site in p revertebral space which appeared to be benign by neurosurgeon. Chest x-ray showed right lower lobe p neumonia. SIGNIFICANT LABS: WBC 7.3, hemoglobin 13.0, platelet 146. Sodium 137, potassium 3.5, BUN 7, creatin ine 0.71, calcium 9.3. LFT normal. Urinalysis unremarkable. Blood culture negative. Urine culture negative. DISCHARGE MEDICATIONS: Levofloxacin 750 mg p.o. daily for 7 days, amlodipine 5 mg p.o. daily, Lexapr o 10 mg p.o. daily, Estrace vaginal cream as directed, gabapentin 600 mg p.o. t.i.d., Fackler 10 one or two tablets t.i.d. p.r.n., ibuprofen 200 mg p.o. t.i.d. p.r.n., Ketoprofen topical application t.i.d . p.r.n., Synthroid 75 mcg p.o. daily, lorazepam 2 mg p.o. at bedtime and 0.5 mg p.o. b.i.d., metopro lol succinate 50 mg p.o. daily, multivitamin 1 tablet p.o. daily, Zantac 75 mg p.o. b.i.d. Restasis ophthalmic drop b.i.d., simethicone 80 mg p.o. as directed, Zanaflex 4 mg q.6h. p.r.n., Nasacort nasa l spray daily, turmeric 500 mg capsule b.i.d. CONTRAINDICATIONS: None. CODE STATUS: FULL CODE. INPATIENT CONSULTANTS: Dr. Smiley, neurosurgeon, was consulted while in hospital. ALLERGIES: CYMBALTA. DISCHARGE PLAN: Post hospital, the patient will follow up with Dr. Smiley as instructed. The jocelyne ent will follow up with primary care physician in 1 week. HOSPITAL COURSE: An 82-year-old female with the above-mentioned medical problem who was admitted for right lower lobe pneumonia. This patient had recently cervical spine surgery and that she was also found with bruits around her upper chest. CT soft tissue neck showed fluid collection in the prevert ebral space. The patient was also having high grade fever and leukocytosis. She was meeting sepsis criteria. She had pneumonia on her right lower lobe. We admitted this patient on telemetry floor. We treated her with vancomycin, Zosyn, and levofloxacin. Subsequently, we changed to only Levaquin t herapy. The patient had significant clinical improvement with IV antibiotic therapy. We transferred her to medical floor. Her hyponatremia, corrected. Her culture remained negative. The patient was on room air and hemodynamically stable. She expressed her wish to go home today. As this patient h ad some fluid collection in the prevertebral space on soft tissue neck CT scan that is why we consult ed neurosurgeon and they recommended that this is normal collection after surgery. The patient is seen and examined at bedside today. VITAL SIGNS: Currently temperature 98.5, pulse 77, blood pressure 174/83, weight 132 pounds, saturat ion 98% on room air. GENERAL: The patient is currently alert, awake, no acute distress. HEAD: Normocephalic, atraumatic. EYES: Pupils round, reactive to light. Extraocular muscle intact. ENT: Oropharynx within normal limits. Moist mucous membranes. No oral lesion, no pharyngeal erythe ma, no exudate. NECK: Supple, no JVD, no thyromegaly, no carotid bruit. LUNGS: Clear to auscultation without any rhonchi or rales. CARDIAC: S1, S2 regular without any murmur. ABDOMEN: Soft and benign. EXTREMITIES: No edema. NEUROLOGIC: Nonfocal examination. The patient is medically stable for discharge today.
== END 2018-03-01 13:44 | disposition home or self-care (01) | DRG 871 ==
LOC: ERS 20:40 → 2NO 23:50 → T4-A 02-28 18:20
PROVIDERS: ADMIT Internal Medicine; ATTEND Internal Medicine
DX: A41.9 Sepsis, unspecified organism (principal); J18.9 Pneumonia, unspecified organism; E87.1 Hypo-osmolality and hyponatremia; E03.9 Hypothyroidism, unspecified; K21.9 Gastro-esophageal reflux disease without esophagitis; I10 Essential (primary) hypertension; M19.90 Unspecified osteoarthritis, unspecified site; F41.9 Anxiety disorder, unspecified; F32.9 Major depressive disorder, single episode, unspecified; D69.6 Thrombocytopenia, unspecified; M47.892 Other spondylosis, cervical region; D64.9 Anemia, unspecified; R13.10 Dysphagia, unspecified
CPT/HCPCS: 36415; 70491; 71045; 80048; 80053; 80202; 81003; 81015; 83605; 85025; 87040; 87086; 93005; 96361; 96365; 96366; 96367; A4216; G8978-GP-CI; G8979-GP-CI; G8980-GP-CI; G8987-GO-CI; G8988-GO-CI; G8989-GO-CI; G8996-GN-CI; G8997-GN-CI; J1956; J2543; J3370; J7050; S0028

== ENCOUNTER 2018-03-09 10:16 | Outpatient (CLI) | payer MEDICARE ==
--- NOTE | 2018-03-09 11:27 | RAD ---
THREE VIEWS OF CERVICAL SPINE: Date: 03-09-18 Comparison: 01-27-18 History: Spinal stenosis of cervical region. FINDINGS: The frontal imaging demonstrates prominent multilevel cervical spine facet and uncal vertebral osteop hyte formation. Lateral exam demonstrates anterior discectomy and fusion hardware at the C6-7 level. There is mild an terolisthesis of C7 on T1 measuring in the 3-4 mm range. There is an intravertebral disc device at C6 -7, new. The fusion hardware present anteriorly at C4-5, C5-6 has been removed since the 02-12-18 exam . There is nonspecific post-operative prevertebral soft tissue swelling anterior to the fusion plate at C6-7 measuring in the 1.8 cm range. IMPRESSION: Post-operative changes as described above. There is persistent prevertebral soft tissue swelling ante rior to the C6-7 level. This prevertebral soft tissue swelling is slightly less conspicuous than on a CT examination performed 02-26-18. Continued follow up is advised. POS: [facility]
== END 2018-03-09 10:17 | disposition home or self-care (01) ==
LOC: TBSIIMAG 10:16
PROVIDERS: ATTEND Neurological Surgery
DX: M48.02 Spinal stenosis, cervical region (principal); Z98.1 Arthrodesis status
CPT/HCPCS: 72040

== ENCOUNTER 2018-05-04 13:50 | Outpatient (CLI) | payer MEDICARE ==
--- NOTE | 2018-05-04 14:29 | RAD ---
THREE VIEWS CERVICAL SPINE: Comparison: 03-09-18 History: Follow up anterior fusion of the cervical spine. FINDINGS: Three views of the cervical spine shows the patient to be status post anterior fusion of C6 and C7 wi th a plate and screws. There has been prior fusion of C4 and C5, and C5 and C6. The previously seen p revertebral soft tissue swelling has diminished. The vertebral bodies demonstrate normal alignment wi thout subluxation. No perihardware lucency is seen. IMPRESSION: Post-surgical changes of the cervical spine without evidence of complication. POS: [facility]
== END 2018-05-04 13:51 | disposition home or self-care (01) ==
LOC: TBSIIMAG 13:50
PROVIDERS: ATTEND Neurological Surgery
DX: M48.02 Spinal stenosis, cervical region (principal); Z98.1 Arthrodesis status
CPT/HCPCS: 72040

== ENCOUNTER 2018-08-10 15:18 | Outpatient (CLI) | payer MEDICARE ==
--- NOTE | 2018-08-10 17:52 | ULT ---
DOPPLER VENOUS ULTRASOUND OF THE LEFT LOWER EXTREMITY: 08/10/18 INDICATION: History of left knee replacement five weeks ago with left leg edema and pain. TECHNIQUE: Mon scale, color doppler and vascular duplex with spectral analysis was performed of the deep venous structures of the left lower extremity. Common femoral vein, superficial femoral vein, popliteal vei n, posterior tibial vein, proximal greater saphenous and profunda veins were assessed. FINDINGS: Normal compression, flow, and augmentation seen within the deep venous structures of the left lower e xtremity. IMPRESSION: No evidence of DVT to the left lower extremity. POS: [facility]
== END 2018-08-10 15:19 | disposition home or self-care (01) ==
LOC: BICULT 15:18
PROVIDERS: ATTEND Orthopaedic Surgery
DX: M79.605 Pain in left leg (principal); M79.89 Other specified soft tissue disorders; Z96.652 Presence of left artificial knee joint

== ENCOUNTER 2019-01-04 09:49 | Outpatient (CLI) | payer MEDICARE ==
--- NOTE | 2019-01-04 12:17 | MRI ---
MRI THORACIC SPINE WITHOUT CONTRAST: HISTORY: Thoracic radiculitis. Upper back pain, radiating to the front, for a long time. COMPARISON: None. TECHNIQUE: An MRI of the thoracic spine is performed without intravenous Gadolinium administration. Multisequen tial, multiplanar imaging is performed. FINDINGS: Overall, there is appropriate T1 marrow signal intensity of the thoracic vertebrae. Thoracic spine v ertebral body height is maintained. There is no fracture. There is no significant STIR hyperintensi ty to suggest vertebral body edema or ligamentous injury. The visualized mediastinal structures are unremarkable. Minimal dependent atelectatic changes within the lung parenchyma. The visualized solid abdominal viscera has appropriate signal intensity. The exception is that there are T2 hyperintensities in the left and right kidney, compatible with cortica l cysts. Please refer to CT abdomen from June 2009 for further detail. The conus medullaris terminates at the inferior aspect of T12. The thoracic cord has normal size and signal intensity. Incompletely evaluated cervical fusion hardware at the lower cervical spine. T1-T2 THROUGH T3-T4: Minimal central disk bulges without significant central canal stenosis. T4-T5 THROUGH T6-T7: No significant central canal stenosis. T7-T8: Minimal disk bulge without significant central canal stenosis. T8-T9 THROUGH T11-T12: No significant central canal stenosis. T12-L1: Mild loss of disk space height. Generalized disk bulge, ligamentum flavum thickening, and f acet hypertrophy result in mild central canal stenosis. L1-L2: Desiccation with at least mild to moderate loss of disk space height. There appears to be a broad-based disk bulge. There is no definite high-grade stenosis based on images provided. Throughout the thoracic spine, the neural foramina are patent. There does appear to be moderate left foraminal narrowing at L1-L2, based upon the sagittal images. Narrowing is secondary to disk material. Dedicated lumbar spine imaging would be beneficial. IMPRESSION: 1. No significant central canal stenosis or foraminal narrowing of the thoracic spine. 2. Significant left foraminal narrowing at L1-L2, secondary to disk material. Evaluation was limite d on this examination. POS: [facility]
== END 2019-01-04 09:50 | disposition home or self-care (01) ==
LOC: SCSMRI 09:49
PROVIDERS: ATTEND Nurse Practitioner Family
DX: M54.14 Radiculopathy, thoracic region (principal); M48.061 Spinal stenosis, lumbar region without neurogenic claudication
CPT/HCPCS: 72146

== ENCOUNTER 2019-05-18 11:46 | Emergency (ER) | payer MEDICARE ==
[2019-05-18 12:23] LABS: #Basophils 0.1 thou/uL (0.0-0.2); #Eosinphils 0.1 thou/uL (0.0-0.7); #Lymphocytes 2.5 thou/uL (1.20-3.40); #Monocytes 0.8 thou/uL (0.11-0.59); #Neutrophils 6.2 thou/uL (1.40-6.50); %Basophils 0.9 % (0.0-1.0); %Eosinophils 0.7 % (0.0-10.0); %Lymphocytes 26.2 % (21.0-51.0); %Monocytes 8.2 % (0.0-10.0); Hemoglobin 13.9 g/dL (12.0-16.0); Mean Corpuscular HGB CONC 33.1 g/dL (32.0-36.0); Mean Corpuscular Volume 99.7 fL (78.0-98.0); Mean Platelet Volume 7.7 fL (7.4-10.4); Platelet Count 163 thou/uL (130-400); RBC Distribution Width 11.8 % (11.5-14.5); White Blood Cell (WBC) Count 9.6 thou/uL (4.8-10.8)
[2019-05-18 12:30] LABS: INR-International Normal Ratio 1.1; PTT 29.4 SEC (22.9-36.1); Prothrombin Time 13.9 SEC (12.0-14.7)
[2019-05-18 12:39] LABS: Anion Gap 13 mmol/L (10-20); BUN (Urea Nitrogen) 20 mg/dL (9.8-20.1); Calc. Creatinine Clearance 0 mL/min (70-130); Carbon Dioxide 31 mmol/L (23-31); Chloride 97 mmol/L (98-107); Estimated GFR-MDRD 74; Potassium 3.6 mmol/L (3.5-5.1); Sodium 137 mmol/L (136-145)
[2019-05-18 12:40] LABS: ALT (SGPT) 41 U/L (8-55); AST (SGOT) 22 U/L (5-34); Albumin 3.9 g/dL (3.4-4.8); Alkaline Phosphatase 61 U/L (40-150); Bilirubin, Total 0.2 mg/dL (0.2-1.2); Calcium 9.4 mg/dL (7.8-10.44); Globulin 3.1 g/dL (2.4-3.5); Glucose 126 mg/dL (83-110)
== END 2019-05-18 12:45 | disposition home or self-care (01) ==
LOC: SCSER 11:46
DX: K62.5 Hemorrhage of anus and rectum (principal); E03.9 Hypothyroidism, unspecified; K21.9 Gastro-esophageal reflux disease without esophagitis; I10 Essential (primary) hypertension; M19.90 Unspecified osteoarthritis, unspecified site; F41.9 Anxiety disorder, unspecified; F32.9 Major depressive disorder, single episode, unspecified; Z79.899 Other long term (current) drug therapy
CPT/HCPCS: 36415; 80053; 82274; 85025; 85610; 85730; 99283

== ENCOUNTER 2019-07-18 13:57 | Outpatient (CLI) | payer MEDICARE ==
--- NOTE | 2019-07-18 15:24 | MRI ---
MRI CERVICAL SPINE WITHOUT CONTRAST: Date: 07/18/19 INDICATION: Cervical stenosis, neck pain. Prior cervical surgery. Comparison made to plain films of cervical spine dated 05/04/18. FINDINGS: Postoperative changes are noted. There is bony fusion at C4-5. Anterior plate and screws transfix C6 and C7 with interbody implant. There is fusion at C6-7 apparent today. Slight anterolisthesis at C7-T1 which appears stable from the prior plain film. Degenerative disc telma nges with loss of disc space at T1-T2 and T2-T3 with disc bulges at both of these levels flattening t he anterior thecal sac and effacing the anterior subarachnoid space. No significant disc bulge or spondylosis seen at C2-3 or C3-4. There is right foraminal narrowing at C3-4 due to facet and uncinate hypertrophy. Fusion at C4-5. Anterior subarachnoid space is preserved. Mild bony spondylosis at C5-6 with bony fusion. This effaces the anterior subarachnoid space. Bony fu romario at C6-C7 effaces the anterior subarachnoid space. No significant cord impingement. Foramina appe ar patent through these levels. Cord signal is normal. Prominent hypertrophic change at C1-2 is noted with posterior compression of the anterior thecal sac and effacement of the anterior subarachnoid space at the cervicomedullary junction. No evidence of co rd impingement. No central canal stenosis apparent. IMPRESSION: 1. Postoperative changes with fusion from C4 through C7 as described. There is foraminal encroachmen t due to facet and uncinate hypertrophy as noted above. No central canal stenosis or cord impingement . 2. Degenerative disc changes in the upper thoracic spine with posterior disc bulge and spondylosis f lattening the thecal sac and effacing the anterior subarachnoid space as described above. POS: [facility]
== END 2019-07-18 13:58 | disposition home or self-care (01) ==
LOC: BICMRI 13:57
PROVIDERS: ATTEND Anesthesiology Pain Medicine
DX: M48.02 Spinal stenosis, cervical region (principal); M47.814 Spondylosis without myelopathy or radiculopathy, thoracic region; M51.24 Other intervertebral disc displacement, thoracic region; Z98.1 Arthrodesis status; Z98.890 Other specified postprocedural states
CPT/HCPCS: 72141

== ENCOUNTER 2020-08-23 07:50 | Outpatient (CLI) | payer MEDICARE ==
--- NOTE | 2020-08-23 09:16 | MRI ---
MRI cervical spine noncontrast: 08/23/2020 HISTORY: 85-year-old female with M 48.02 stenosis of cervical spinal canal and cervicalgia. COMPARISON: 07/18/2019. FINDINGS: Cervical spinal cord is normal in size and signal. ACDF hardware at C5, C6, and C7. Successful ankylo sis of C4-5 disc space. Vertebral body heights are maintained. C1-2: Moderately large degenerative pseudopannus around the atlantoaxial junction protrudes into the craniocervical junction, but does not displace the cervical medullary junction or upper cervical spinal cord. It does not cause significant luminal stenosis of the spinal canal. Severe DJD of bilate ral atlantoaxial joints. C2-3: Disc space maintained. Severe bilateral facet DJD. Left facet joint effusion and small right fa cet joint effusion. Thickened ligamentum flavum indents dorsal surface of spinal cord. Small central disc-osteophyte or disc protrusion. Moderate central spinal canal stenosis. Moderate bilatera l neural foraminal stenosis, left greater than right. No major interval change. C3-4: Disc space maintained. Severe bilateral facet DJD. Mild central spinal canal stenosis. Small un cinate process osteophytes bilaterally. Mild to moderate bilateral neural foraminal stenosis. No major interval change. C4-5: No central spinal canal stenosis. Small to moderate-sized bilateral uncinate process osteophyte s. No right neural foraminal stenosis. Mild left neural foraminal stenosis. Normal right facet joint. Degenerative hypertrophy of left facet joint, but that joint is ankylosed. C5-6: Disc space maintained. No DJD right facet joint. At least mild DJD left facet joint. Questionab le ankylosis. No central spinal canal stenosis. Small bilateral uncinate process osteophytes. No right neural foraminal stenosis. Probably no left neural foraminal stenosis. No interval change detec christopher. C6-7: Mild ligamentum flavum thickening. Small central disc protrusion or disc-osteophyte complex ind ents ventral aspect of spinal canal. Mild central spinal canal stenosis. Moderate size bilateral uncinate process osteophytes, but no significant neural foraminal stenosis. Moderate bilateral facet DJD. No interval change. C7-T1: Moderate bilateral facet DJD. Mild to moderate bilateral neural foraminal stenosis. Mild centr al spinal canal stenosis. Small central focal disc protrusion or disc osteophyte complex. No major interval change. Degenerative disc disease at T1-2, T2-3, T3-4, are again noted, with shallow central and bilateral pa racentral disc protrusions or disc-osteophyte complexes encroaching upon anterior aspect of spinal canal without contacting the spinal cord, causing mild central spinal canal stenoses at these upper t horacic levels. No interval change detected. IMPRESSION: 1.) Cervical spondylosis with multilevel facet osteoarthrosis. This includes severe facet arthritis a t the upper levels. 2) status post anterior cervical discectomy and fusion with hardware at C5-C6-7. 3) successful ankylosis at C3-4. 4) no severe central spinal canal stenosis or severe neural foraminal stenosis at any level. 5) no interval change since 07/18/2019.
== END 2020-08-23 07:51 | disposition home or self-care (01) ==
LOC: TBSIIMAG 07:50
PROVIDERS: ATTEND Anesthesiology Pain Medicine
DX: M48.02 Spinal stenosis, cervical region (principal); M47.812 Spondylosis without myelopathy or radiculopathy, cervical region; Z98.890 Other specified postprocedural states
CPT/HCPCS: 72141